=== PATIENT | male | born 1955 | race Asian ===

== ENCOUNTER 2016-10-04 20:41 | Emergency (ER) | payer MEDICAID ==
[2016-10-04 22:03] LABS: Basophils % (Auto) 0.5 % (0.0-1.8); Eosinophils % (Auto) 0.5 % (0.0-4.3); Hematocrit 33.9 % (35.5-45.6); Hemoglobin 11.2 gm/dl (11.8-15.2); Mean Corpuscular HGB Conc 33 % (32-34); Mean Corpuscular Hemoglobin 31 pg (28-32); Mean Corpuscular Volume 95 fl (84-94); Platelet Count 305 K/mm3 (140-440); Red Blood Count 3.56 M/mm3 (3.65-5.03); Red Cell Distribution Width 13.6 % (13.2-15.2); White Blood Count 10.4 K/mm3 (4.5-11.0)
[2016-10-04 22:22] LABS: BUN/Creatinine Ratio 14.4; Calcium 9.2 mg/dL (8.4-10.2); Chloride 108.3 mmol/L (98-107); Potassium 5.3 mmol/L (3.6-5.0)
--- NOTE | 2016-10-04 22:59 | Emergency Department Report ---
ED Medical Clearance HPI - General Chief complaint: Medical Clearance Stated complaint: MEDICAL CLEARANCE/ETOH Time Seen by Provider: 10/04/16 20:53 Source: patient, EMS Mode of arrival: Ambulatory - History of Present Illness Initial comments: This is an anxious 60-year-old gentleman who is followed R times. He does have a long-standing history of alcoholism. He currently is homeless. He has been staying at [facility]. When he arrived there today the attendants at the help desk analyst thought he was drunk and told him he couldn't stay and call the ambulance for transport to our facility. Patient indicates that he has been sober for over a month. He states he had 3 beers this week but states that was several days ago. He reports being quite agitated today in general because he lost his dentures that cost him $2700 Home medications: Home Medications Medication Instructions Recorded Confirmed Last Taken Unobtainable 10/04/16 10/04/16 Unknown Allergies/Adverse reactions: Allergies Allergy/AdvReac Type Severity Reaction Status Date / Time No Known Allergies Allergy Verified 10/05/16 01:10 ED Review of Systems ROS: Stated complaint: MEDICAL CLEARANCE/ETOH Other details as noted in HPI Constitutional: denies: chills, fever Eyes: denies: eye pain, eye discharge, vision change ENT: denies: ear pain, throat pain Respiratory: denies: cough, shortness of breath, wheezing Cardiovascular: denies: chest pain, palpitations Endocrine: no symptoms reported Gastrointestinal: denies: abdominal pain, nausea, diarrhea Genitourinary: denies: urgency, dysuria Musculoskeletal: denies: back pain, joint swelling, arthralgia Skin: denies: rash, lesions Neurological: denies: headache, weakness, paresthesias Psychiatric: anxiety. denies: depression Hematological/Lymphatic: denies: easy bleeding, easy bruising ED Past Medical Hx - Past Medical History Hx COPD: Yes Additional medical history: ETOH abuse, Hypothyroid - Surgical History Past Surgical History?: No - Social History Smoking Status: Current Every Day Smoker Substance Use Type: Alcohol - Medications Home Medications: Home Medications Medication Instructions Recorded Confirmed Last Taken Type Unobtainable 10/04/16 10/04/16 Unknown History ED Physical Exam - General Limitations: No Limitations General appearance: alert, in no apparent distress, anxious - Head Head exam: Present: atraumatic, normocephalic - Eye Eye exam: Present: normal appearance, PERRL, EOMI - ENT ENT exam: Present: mucous membranes moist, other (adentulous) - Neck Neck exam: Present: normal inspection. Absent: lymphadenopathy, thyromegaly - Respiratory Respiratory exam: Present: normal lung sounds bilaterally. Absent: respiratory distress, wheezes, rales - Cardiovascular Cardiovascular Exam: Present: regular rate, normal rhythm. Absent: systolic murmur, diastolic murmur, rubs, gallop - GI/Abdominal GI/Abdominal exam: Present: soft, normal bowel sounds. Absent: tenderness - Rectal Rectal exam: Present: deferred - Extremities Exam Extremities exam: Present: normal inspection - Back Exam Back exam: Present: normal inspection - Neurological Exam Neurological exam: Present: alert, oriented X3, other (moves all extremities spontaneously does use a cane when walking around.) - Psychiatric Psychiatric exam: Present: normal affect, normal mood - Skin Skin exam: Present: warm, dry, intact, normal color. Absent: rash ED Course Vital Signs 10/04/16 10/04/16 10/04/16 20:50 21:19 23:04 Temperature 98.8 F Pulse Rate 83 111 H 102 H Respiratory 18 18 18 Rate Blood Pressure 163/77 Blood Pressure 163/77 140/89 132/78 [Right] O2 Sat by Pulse 96 96 96 Oximetry 10/05/16 10/05/16 00:26 03:23 Temperature Pulse Rate 91 H 98 H Respiratory 18 18 Rate Blood Pressure Blood Pressure 136/84 138/82 [Right] O2 Sat by Pulse 96 96 Oximetry - Reevaluation(s) Reevaluation #1: 10/05/16 06:53 For me this is a fairly pleasant individual. He is somewhat anxious. I can see how he could come across as appearing intoxicated. Clearly this is not the case tonight though. His alcohol screen is negative. At the root of the problem actually I believe is the case that the patient lost his dentures today. He's been perseverating over this rather significant loss in his life. I think his anxiety and frustration regards to this is what was perceived as his drunken behavior. Regardless he is medically clear at this time is noted to have an elevated creatinine. He appears mildly dry he was given a repeat 1 L saline bolus. I did not recheck labs. [facility] was willing to take him back. ED Medical Decision Making - Lab Data Result diagrams: 10/04/16 21:30 10/05/16 05:12 ED Disposition Clinical Impression: Anxiety, Alcoholism, Renal insufficiency Disposition: DISCHARGED TO HOME OR SELFCARE Is pt being admited?: No Does the pt Need Aspirin: No Condition: Stable Additional Instructions: You are medically clear. You don't have DTs currently. No alcohol. Referrals: PRIMARY CARE, [Primary Care Provider] - 3-5 Days Time of Disposition: 22:58
[2016-10-05] MEDS ORDERED: NACL 0.9% 1000 ML 1,000 ML ONE (00:51)
[2016-10-05] MEDS ORDERED: NACL 0.9% 1000 ML IV ONE (00:53)
[2016-10-05] MEDS ORDERED: ATIVAN IV ONE (01:27)
[2016-10-05] MEDS ORDERED: ATIVAN ONE (01:27)
[2016-10-05 04:27] LABS: Chloride TNR mmol/L (98-107); Potassium TNR mmol/L (3.6-5.0); Sodium TNR mmol/L (137-145)
[2016-10-05 04:28] LABS: Anion Gap TNR mmol/L; BUN/Creatinine Ratio TNR; Blood Urea Nitrogen TNR mg/dL (9-20); Calcium TNR mg/dL (8.4-10.2); Carbon Dioxide TNR mmol/L (22-30); Glucose TNR mg/dL (75-100)
[2016-10-05 05:41] LABS: BUN/Creatinine Ratio 17.89; Calcium 8.6 mg/dL (8.4-10.2); Chloride 113.8 mmol/L (98-107); Potassium 5.8 mmol/L (3.6-5.0)
[2016-10-05] MEDS ORDERED: KIONEX PO ONE (07:26)
[2016-10-05] MEDS ORDERED: PROVENTIL IH ONE (07:26)
[2016-10-05] MEDS ORDERED: NACL 0.9% 1000 ML 1,000 ML IV ONE (07:26)
[2016-10-05 16:01] VITALS: BP 144/55
== END 2016-10-05 14:40 | disposition home or self-care (01) ==
LOC: ED 20:41 → EEVIPCON 20:41 → ED 10-05 14:40
DX: F41.9 Anxiety disorder, unspecified (principal); F10.20 Alcohol dependence, uncomplicated; N28.9 Disorder of kidney and ureter, unspecified; J44.9 Chronic obstructive pulmonary disease, unspecified; E03.9 Hypothyroidism, unspecified; F17.200 Nicotine dependence, unspecified, uncomplicated
CPT/HCPCS: 36415; 80048; 84132; 84443; 85025; 94644; 96361; 96374; 99284; G0480; J2060; J7030; 80320